=== PATIENT | male | born 1965 | race Caucasian/White ===

== ENCOUNTER 2020-11-11 14:19 | Outpatient (CLI) | payer MEDICAID ==
[2020-11-11 14:39] LABS: ABG BASE EXCESS -1.1 mmol/L (-2.0-2.0); ABG HCO3 22.6 mmol/L (22.0-26.0); ABG OXYGEN SATURATION 96.7 % (94-97); ABG PCO2 (T) 35.1 mmHg (35.0-48.0); ABG PO2 (T) 88.1 mmHg (75.0-100.0); ALLEN'S TEST POSITIVE; FCOHb 0.3 % (0.0-3.9); FMetHb 0.2 % (0.0-1.5); FO2Hb 96.2 % (94-97); TOTAL HEMOGLOBIN 17.2 G/dl (14.0-18.0)
== END 2020-11-11 23:59 | disposition home or self-care (01) ==
LOC: RT 14:19
PROVIDERS: ATTEND Family Medicine
DX: R06.02 Shortness of breath (principal)
CPT/HCPCS: 36600; 82803; 85018; 94010; 94727; 94729

== ENCOUNTER 2021-02-05 05:39 | Inpatient (IN) | payer MEDICAID ==
[2021-01-29 16:25] LABS: BASOPHILS # (AUTO) 0.1 X10'3 (0-0.2); EOSINOPHILS # (AUTO) 0.2 X10'3 (0-0.9); EOSINOPHILS % (AUTO) 3.9 % (0-6); LYMPHOCYTES # (AUTO) 1.7 X10'3 (1.1-4.8); LYMPHOCYTES % (AUTO) 31.3 % (21-51); MEAN CORPUSCULAR HGB CONC 34.7 g/dL (33.0-36.5); MEAN CORPUSCULAR VOLUME 95.1 FL (78-98); MEAN PLATELET VOLUME 7.6 FL (7.4-10.4); MONOCYTES # (AUTO) 0.5 X10'3 (0-0.9); MONOCYTES % (AUTO) 8.7 % (2-12); NEUTROPHILS % (AUTO) 55.1 % (42-75); PRE OP HEMATOCRIT 43.5 % (42.0-52.0); PRE OP HEMOGLOBIN 15.1 g/dL (14.0-17.9); PRE OP PLATELET COUNT 254 X10'3 (140-440); RED BLOOD COUNT 4.57 X10'6 (4.70-6.10); RED CELL DISTRIBUTION WIDTH 13.9 % (11.5-14.5)
[2021-01-29 16:40] LABS: PRE OP PROTIME 10.3 SECONDS (9.0-12.0)
[2021-01-29 16:43] LABS: ALBUMIN 3.9 G/DL (3.4-5.0); ALBUMIN/GLOBULIN RATIO 1.1 (1.1-1.5); ALKALINE PHOSPHATASE 73 IU/L (46-116); BLOOD UREA NITROGEN 17 MG/DL (7-18); BUN/CREATININE RATIO 13.2 (5.4-32.0); CALCIUM 8.9 MG/DL (8.5-10.1); CHLORIDE 104 MMOL/L (99-107); CREATININE 1.29 MG/DL (0.60-1.10); PRE OP ALT 28 U/L (30-65); PRE OP ANION GAP 10 (8-16); PRE OP AST 15 U/L (10-37); PRE OP BILIRUB, TOTAL 0.3 MG/DL (0.0-1.0); PRE OP GLUCOSE 89 MG/DL (70-104); PRE OP SODIUM 141 MMOL/L (135-145); TOTAL CARBON DIOXIDE 27.5 MMOL/L (24-32); TOTAL PROTEIN 7.4 G/DL (6.4-8.2); eGFR 58 ML/MIN
[2021-01-29 16:49] LABS: CLARITY,URINE CLEAR (Clear); COLOR,URINE YELLOW (Yellow); GLUCOSE, URINE NEGATIVE (Neg); KETONES,URINE NEGATIVE (Neg); LEUKOCYTE ESTERASE ,URINE NEGATIVE (Neg); NITRITES, URINE NEGATIVE (Neg); OCCULT BLOOD,URINE NEGATIVE (Neg); PROTEIN,URINE NEGATIVE (Neg); UROBILINOGEN,URINE 0.2 E.U/dL (0.2-1.0)
[2021-01-29 16:58] LABS: UA COLLECTION TYPE URINAL
[2021-02-05] VITALS (18 sets, daily range): BP systolic 86–132; BP diastolic 56–92
[~2021-02-05] VITALS: Ht 185.4 cm; Wt 86.2 kg
[~2021-02-05 05:39] MED LIST: ALLO100T PO; ASPI-529 PO; LACTC PO; cefazolin/dext.iso 2gm/100ml IV ONE; famotidine 20mg tablet PO ONE; ringers solution, lacted 1,000 ML IV SCH
[2021-02-05] MEDS ORDERED: bacitracin 15gm ointment TP ONE ×2 (07:30→09:10)
[2021-02-05] MEDS ORDERED: BUPIVAcaine/PF 2.5 mg/ml (0.25%) 30ml vial ONE ×2 (07:30→09:03)
[2021-02-05] MEDS ORDERED: MIDAZolam 1 MG/ML 5ML VIAL ONE (07:40)
[2021-02-05] MEDS ORDERED: fentaNYL/PF 50MCG/1 ML 2ML syringe ONE (07:40)
[2021-02-05] MEDS ORDERED: LIDOcaine 2% (20mg/ml) 5ml vial ONE (07:41)
[2021-02-05] MEDS ORDERED: propofol inj 20 ML IV ONE (07:41)
[2021-02-05] MEDS ORDERED: BUPIVAcaine/PF 2.5 mg/ml (0.25%) 30ml vial IJ ONE (09:11)
--- NOTE | 2021-02-05 09:36 | NUR ---
Received from OR via [facility] , accompanied by Anesthesiologist BOBBI and report given by Anesthesiolgist. PATIENT WITH 20G PIV IN RIGHT UE RUNNING LR AT 100. VSS. PATIENT DENIES PAIN. BILAT FEET DRESSED WITH AMBER BANDAGES THAT ARE CDI. + CAP REFILL BILAT TOES. DRESSINGS TO FEET ALL CDI. Addendum: 02/05/21 at 0950 by Dangelo Tirado RN, RN Amended: Links added.
[2021-02-05] MEDS ORDERED: magnesium hydroxide 30ml (MOM) UD suspension PO PRN (09:45)
[2021-02-05] MEDS ORDERED: morphine 2 MG/ML inj. syringe IV PRN ×3 (09:45→10:05)
[2021-02-05] MEDS ORDERED: acetaminophen 325mg tablet PO PRN (09:45)
[2021-02-05] MEDS ORDERED: mag hydrox/Alum hydrox/simeth 30ml oral suspension PO PRN (09:45)
[2021-02-05] MEDS ORDERED: ondansetron/PF 4mg/2ml inj IV PRN ×2 (09:45→10:05)
[2021-02-05] MEDS ORDERED: meperidine/PF 25mg/ml syringe IV PRN ×3 (10:05)
[2021-02-05] MEDS ORDERED: proCHLORperazine 10 MG/2 ml inj IV PRN (10:05)
[2021-02-05] MEDS ORDERED: morphine 4 MG/ML inj SYRINge IV PRN (10:05)
[2021-02-05] MEDS ORDERED: ringers solution, lacted 1,000 ML IV SCH (10:05)
--- NOTE | 2021-02-05 10:35 | NUR ---
Patient in room ORTHO 4024A. I have received report from AUDREY EWING FROM [facility] and had the opportunity to ask questions and assume patient care.
--- NOTE | 2021-02-05 10:46 | NUR ---
PATIENT HAS MET ALL CRITERIA FOR TRANSFER TO THE SURGICAL/AMBER/PCU/ORTHO/ICU FLOOR. VSS. DRESSINGS INTACT. BED LOW, CALL LIGHT PRESENT AND 2 RAILS UP. RN PRESENT TO ACCEPT CARE OF PATIENT AND REPORT HAS BEEN CALLED. ALL QUESTIONS ANSWERED TO ACCEPTING AUDREY KC. 2 PERSON ASSIST TO TRANSFER PATIENT TO BED. FOOT OF BED GATCHED AND KNEES BROUGHT TO COMFORTABLE LEVEL. DENIES PAIN. SENSATION LEVEL OF T12 AT THIS TIME FROM SPINAL ANESTHESIA. VSS. CARE TURNED OVER TO DE. 3 LABELED BAGS OF BELONGINGS PLACED AT BEDSIDE. Addendum: 02/05/21 at 1049 by Dangelo Tirado RN, RN Amended: Links added.
[2021-02-05] MEDS: HYDROcodone/acetaminophen 10/325mg tab PO PRN (17:51)
[2021-02-05] MEDS ORDERED: magnesium Cl slow-release 64mg tablet PO PRN (18:30)
[2021-02-05] MEDS ORDERED: potassium Cl 20 mEq SR tablet PO PRN ×2 (18:30)
[2021-02-05] MEDS ORDERED: magnesium 4gm in 100ml NS 100 ML IV PRN (18:30)
[2021-02-05] MEDS ORDERED: potassium Cl 40MEQ/1/2NS 520ml 520 ML IV PRN (18:30)
--- NOTE | 2021-02-05 19:06 | NUR ---
Patient in room ORTHO 4024. I have received report from Lorenza VENTURA and had the opportunity to ask questions and assume patient care.
[2021-02-05] MEDS: K and/or MAG REPLACEMENT MC SCH (20:00)
--- NOTE | 2021-02-05 20:02 | NUR ---
Problems reprioritized. Patient report given, questions answered & plan of care reviewed with AUDREY KING.
[2021-02-05] MEDS: allopurinol 100mg tablet PO SCH (22:06)
[2021-02-06 02:00] VITALS: BP 123/88
[2021-02-06] MEDS: HYDROcodone/acetaminophen 10/325mg tab PO PRN ×3 (02:52→23:08)
[2021-02-06 06:12] LABS: BASOPHILS % (AUTO) 0.5 % (0-1); EOSINOPHILS # (AUTO) 0.3 X10'3 (0-0.9); EOSINOPHILS % (AUTO) 4.2 % (0-6); HEMATOCRIT 42.6 % (42.0-52.0); HEMOGLOBIN 14.8 g/dl (14.0-17.9); LYMPHOCYTES # (AUTO) 1.3 X10'3 (1.1-4.8); LYMPHOCYTES % (AUTO) 20.5 % (21-51); MEAN CORPUSCULAR HEMOGLOBIN 32.7 PG (27.0-31.0); MEAN CORPUSCULAR HGB CONC 34.8 g/dL (33.0-36.5); MEAN PLATELET VOLUME 7.9 FL (7.4-10.4); MONOCYTES # (AUTO) 0.5 X10'3 (0-0.9); MONOCYTES % (AUTO) 7.8 % (2-12); NEUTROPHILS # (AUTO) 4.3 X10'3 (1.8-7.7); PLATELET COUNT 203 X10'3 (140-440); RED BLOOD COUNT 4.53 X10'6 (4.70-6.10); RED CELL DISTRIBUTION WIDTH 13.8 % (11.5-14.5); WHITE BLOOD COUNT 6.4 X10'3 (4.5-11.0)
[2021-02-06 06:33] LABS: ALANINE AMINOTRANSFERASE 19 U/L (12-78); ALBUMIN 2.9 G/DL (3.4-5.0); ALBUMIN/GLOBULIN RATIO 0.9 (1.1-1.5); ALKALINE PHOSPHATASE 64 IU/L (46-116); ANION GAP 8 (8-16); ASPARTATE AMINO TRANSFERASE 11 U/L (10-37); BILIRUBIN,TOTAL 0.5 MG/DL (0.1-1.0); BLOOD UREA NITROGEN 14 MG/DL (7-18); BUN/CREATININE RATIO 12.8 (5.4-32.0); CALCIUM 8.2 MG/DL (8.5-10.1); CHLORIDE 106 MMOL/L (99-107); CREATININE 1.09 MG/DL (0.60-1.10); GLUCOSE 98 MG/DL (70-104); MAGNESIUM 1.9 MG/DL (1.5-2.4); PHOSPHORUS 3.5 MG/DL (2.3-4.5); SODIUM 140 MMOL/L (135-145); TOTAL CARBON DIOXIDE 26.5 MMOL/L (24-32); TOTAL PROTEIN 6.1 G/DL (6.4-8.2); eGFR 70 ML/MIN
--- NOTE | 2021-02-06 06:48 | NUR ---
Problems reprioritized. Patient report given, questions answered & plan of care reviewed with Adalid VENTURA.
[2021-02-06 07:19] VITALS: BP 129/84
[2021-02-06] MEDS: K and/or MAG REPLACEMENT MC SCH ×2 (08:00→20:00)
[2021-02-06] MEDS ORDERED: lactobacillus acidophilus cap PO SCH (08:00)
[2021-02-06] MEDS: aspirin 81mg tab.chew PO SCH (09:02)
[2021-02-06 10:05] VITALS: BP 132/92
--- NOTE | 2021-02-06 12:57 | NUR ---
Patient does not need the ALOC care plan, patient is not altered. Entered this process plan on the wrong patient.
[2021-02-06] MEDS ORDERED: lactobacillus rhamnosus 10,000 MMU CELLS/CAPSULE PO SCH (14:22)
[2021-02-06 14:32] VITALS: BP 126/89
[2021-02-06 18:00] VITALS: BP 132/98
--- NOTE | 2021-02-06 18:10 | NUR ---
Problems reprioritized. Patient report given, questions answered & plan of care reviewed with Tammy VENTURA.
--- NOTE | 2021-02-06 19:10 | NUR ---
Patient in room ORTHO 4024. I have received report from ALYSA VENTURA and had the opportunity to ask questions and assume patient care.
[2021-02-06] MEDS: allopurinol 100mg tablet PO SCH (21:54)
[2021-02-06 22:00] VITALS: BP 128/83
[2021-02-07] MEDS: HYDROcodone/acetaminophen 10/325mg tab PO PRN ×3 (04:43→13:51)
[2021-02-07 06:20] LABS: BASOPHILS % (AUTO) 0.6 % (0-1); EOSINOPHILS # (AUTO) 0.3 X10'3 (0-0.9); EOSINOPHILS % (AUTO) 5.8 % (0-6); HEMATOCRIT 42.5 % (42.0-52.0); HEMOGLOBIN 14.8 g/dl (14.0-17.9); LYMPHOCYTES # (AUTO) 1.6 X10'3 (1.1-4.8); LYMPHOCYTES % (AUTO) 28.3 % (21-51); MEAN CORPUSCULAR HEMOGLOBIN 32.6 PG (27.0-31.0); MEAN CORPUSCULAR HGB CONC 34.9 g/dL (33.0-36.5); MEAN CORPUSCULAR VOLUME 93.5 FL (78-98); MEAN PLATELET VOLUME 7.6 FL (7.4-10.4); MONOCYTES # (AUTO) 0.6 X10'3 (0-0.9); MONOCYTES % (AUTO) 10.1 % (2-12); NEUTROPHILS % (AUTO) 55.2 % (42-75); PLATELET COUNT 216 X10'3 (140-440); RED BLOOD COUNT 4.54 X10'6 (4.70-6.10); RED CELL DISTRIBUTION WIDTH 13.6 % (11.5-14.5); WHITE BLOOD COUNT 5.5 X10'3 (4.5-11.0)
[2021-02-07 06:38] LABS: ALANINE AMINOTRANSFERASE 20 U/L (12-78); ALBUMIN 2.7 G/DL (3.4-5.0); ALBUMIN/GLOBULIN RATIO 0.7 (1.1-1.5); ALKALINE PHOSPHATASE 64 IU/L (46-116); ANION GAP 7 (8-16); ASPARTATE AMINO TRANSFERASE 9 U/L (10-37); BILIRUBIN,TOTAL 0.2 MG/DL (0.1-1.0); BLOOD UREA NITROGEN 15 MG/DL (7-18); CALCIUM 8.5 MG/DL (8.5-10.1); CHLORIDE 107 MMOL/L (99-107); CREATININE 1.15 MG/DL (0.60-1.10); GLUCOSE 97 MG/DL (70-104); MAGNESIUM 2.2 MG/DL (1.5-2.4); PHOSPHORUS 4.1 MG/DL (2.3-4.5); POTASSIUM 3.9 MMOL/L (3.5-5.1); SODIUM 141 MMOL/L (135-145); TOTAL PROTEIN 6.4 G/DL (6.4-8.2); eGFR 66 ML/MIN
--- NOTE | 2021-02-07 06:47 | NUR ---
Patient in room ORTHO 4024. I have received report from Tammy VENTURA and had the opportunity to ask questions and assume patient care.
[2021-02-07 06:58] VITALS: BP 120/72
--- NOTE | 2021-02-07 07:12 | NUR ---
Problems reprioritized. Patient report given, questions answered & plan of care reviewed with DE VENTURA.
[2021-02-07] MEDS: K and/or MAG REPLACEMENT MC SCH (08:00)
[2021-02-07] MEDS: aspirin 81mg tab.chew PO SCH (08:34)
[2021-02-07] MEDS ORDERED: HYDR-3965 PO (09:56)
--- NOTE | 2021-02-07 10:37 | NUR ---
Let patient know that hopsitalist put in orders to be discharged just for a heads up as he is from [place] and his ride is three hours away. His mother then called me worried about him being discharged to home and if he was safe. Told her physical therapy cleared him and said that he was safe with them with transfers. She is unable to come get him today and is going to call someone else to see if they can come to pick him up. Awaiting call back. Addendum: 02/07/21 at 1253 by Chelsea Jamison RN Mother called back, stated she will be in around [phone] to lemon picker the patient.
[2021-02-07 11:56] VITALS: BP 104/68
--- NOTE | 2021-02-07 15:40 | NUR ---
Patient discharged via wheelchair with mother to transport to home. Discontinued 20 gauge PIV from right wrist, cannula intact no s/s of phlebitis. Discharge instructions given to both patient and his mother regarding follow up, medications and s/s of infection/ blood clot. Both verbalized understanding. Discharged to private vehicle with no complications.
== END 2021-02-07 15:45 | disposition home health service (06) | DRG 314 ==
LOC: UNDOADMIN 05:39 → PAS IN 05:39 → ORTHO 4S 10:35 → PAS IN 10:35 → EDSTATUS 13:00
PROVIDERS: ADMIT Podiatrist Foot & Ankle Surgery; ATTEND Podiatrist Foot & Ankle Surgery
PROC: 0QSN04Z Reposition Right Metatarsal with Internal Fixation Device, Open Approach (ICD-10-PCS; 2021-02-05)
PROC: 0QUP07Z Supplement Left Metatarsal with Autologous Tissue Substitute, Open Approach (ICD-10-PCS; 2021-02-05)
PROC: 0QUN07Z Supplement Right Metatarsal with Autologous Tissue Substitute, Open Approach (ICD-10-PCS; 2021-02-05)
PROC: 0QSP04Z Reposition Left Metatarsal with Internal Fixation Device, Open Approach (ICD-10-PCS; principal; 2021-02-05 07:38)
DX: S92.351A Displaced fracture of fifth metatarsal bone, right foot, initial encounter for closed fracture (principal); F15.90 Other stimulant use, unspecified, uncomplicated; I25.10 Atherosclerotic heart disease of native coronary artery without angina pectoris; S92.902A Unspecified fracture of left foot, initial encounter for closed fracture; W18.39XA Other fall on same level, initial encounter; Z20.822 Contact with and (suspected) exposure to COVID-19; M10.9 Gout, unspecified; Z72.0 Tobacco use; Z79.82 Long term (current) use of aspirin; Y93.89 Activity, other specified; Y92.89 Other specified places as the place of occurrence of the external cause; Y99.8 Other external cause status; Z79.899 Other long term (current) drug therapy
CPT/HCPCS: 36415; 73620; 76000; 80053; 81003; 83735; 84100; 85025; 85610; 85730; 87081; 93005; 93306; 97110; 97161; 97530; 97542; A4215; A6223; A6253; A6449; C1713; G0378; J2001; J2250; J2704; J3010; J3490; J7120; U0003; U0005